=== PATIENT | male | born 1965 | race Caucasian/White ===

== ENCOUNTER → 2016-02-25 | Outpatient (CLI) | payer OTHER ==
[~2016-02-25] MED LIST: ACETAMINOPHEN/O1 TA1 PO; BENZTROPINE1 MG PO; BUSPAR15 MG PO; BUSPAR5 MG PO; CALCIUM 500 + D1 TAB PO; CLINDAMYCIN HC300 MG PO; CLONAZEPAM0.125 MG PO; CLONAZEPAM2 MG PO; COGENTIN0.5 MG PO; COGENTIN1 MG PO; DIAZEPAM10 M1 PO; FLEXERIL10 MG PO; HYDROCODONE BIT1 T11 PO; KLONOPIN0.5 MG PO; LAMICTAL100 MG PO; LAMICTAL25 MG PO; LODINE XL 500M500 MG PO; LODINE200 MG PO; MELOXICAM7.5 MG PO; MOTRIN800 MG PO; NAPROSYN500 MG PO; NAPROXEN500 M1 PO; NEURONTIN300 MG PO; NKHM; NORCO 10-325 T1 EACH PO; NORCO 325 MG-51 TAB PO; OXYBUTYNIN5 MG/5 M1 PO; PERCOCET 325 MG1 TA2 PO; PERCODAN 325 MG1 TAB PO; PREDNISONE10 MG PO; QUETIAPINE FUM100 M3 PO; SEROQUEL100 MG PO; SYNTHROID,LEVO50 MCG PO; TEGRETOL200 MG PO; ULTRAM50 MG PO; VALIUM10 MG PO; VICODIN 5/500 505 MG PO; VICODIN1 TAB PO; XANAX0.25 MG PO; XANAX0.5 MG PO; ZITHROMAX250 MG PO; ZYPREXA5 M1 PO; ZYPREXA5 MG PO
[2016-02-25 14:19] LABS: HEMATOCRIT 48.8 % (42.0-52.0); HEMOGLOBIN 16.1 g/dl (14.0-18.0); MEAN CELL VOLUME 98.4 fl (80.0-94.0); MEAN CORPUSCULAR HGB 32.5 pg (27.0-31.0); PLATELET COUNT AUTOMATED 257 10*3/uL (130-400); RED BLOOD COUNT 4.96 10*6/uL (4.50-5.90); RED CELL DISTRI WIDTH 12.6 % (0-14.5); WHITE BLOOD COUNT 4.9 10*3/uL (4.8-10.8)
[2016-02-25 14:55] LABS: ATYPICAL LYMPHS 13 % (0-0); BASOPHILS 1 % (0-1); EOSINOPHIL # 0.1 10*3/uL (0-0.4); EOSINOPHILS 2 % (1-4); LYMPHOCYTE # 1.7 10*3/uL (1.3-4.4); MONOCYTE # 0.9 10*3/uL (0.1-1.0); NEUTROPHIL # 2.2 10*3/uL (2.3-7.9); NEUTROPHILS 44 % (47-73); TOTAL CELLS COUNTED 100 #CELLS
[2016-02-25 14:56] LABS: PLATELET SUFFICIENCY NORMAL (NORMAL)
== END | disposition home or self-care (01) ==
LOC: LAB 13:15
PROVIDERS: Family Medicine
DX: R07.9 Chest pain, unspecified (principal); R05 Cough

== ENCOUNTER 2016-03-10 09:52 | Emergency (ER) | payer OTHER ==
[~2016-03-10] VITALS: Ht 172.7 cm; Wt 72.6 kg
[~2016-03-10 09:52] MED LIST changes: -SEROQUEL100 MG PO
[2016-03-10] MEDS ORDERED: SEROQUEL100 MG PO (10:01)
[2016-03-10] MEDS ORDERED: PERCOCET 325 MG1 TA2 PO (12:38)
== END 2016-03-10 12:47 | disposition home or self-care (01) ==
LOC: ED 09:52
DX: S00.83XA Contusion of other part of head, initial encounter (principal); F41.9 Anxiety disorder, unspecified; R68.84 Jaw pain; M25.562 Pain in left knee; G89.29 Other chronic pain; F17.200 Nicotine dependence, unspecified, uncomplicated; Z88.0 Allergy status to penicillin; Z79.899 Other long term (current) drug therapy; W10.9XXA Fall (on) (from) unspecified stairs and steps, initial encounter; Y93.9 Activity, unspecified; Y92.9 Unspecified place or not applicable; Y99.9 Unspecified external cause status

== ENCOUNTER 2016-05-23 07:54 | Emergency (ER) | payer OTHER ==
[~2016-05-23] VITALS: Ht 170.1 cm; Wt 72.6 kg
[~2016-05-23 07:54] MED LIST changes: +SEROQUEL100 MG PO
[2016-05-23] MEDS ORDERED: CLINDAMYCIN150 MG PO (08:09)
[2016-05-23] MEDS ORDERED: NAPROXEN500 MG PO (08:09)
== END 2016-05-23 08:17 | disposition home or self-care (01) ==
LOC: ED 07:54
DX: K08.89 Other specified disorders of teeth and supporting structures (principal); F41.9 Anxiety disorder, unspecified; F17.200 Nicotine dependence, unspecified, uncomplicated; Z88.0 Allergy status to penicillin

== ENCOUNTER 2016-11-29 08:06 | Emergency (ER) | payer OTHER ==
[~2016-11-29] VITALS: Ht 157.4 cm; Wt 71.7 kg
[~2016-11-29 08:06] MED LIST changes: +CLINDAMYCIN150 MG PO; +NAPROXEN500 MG PO
[2016-11-29] MEDS ORDERED: NORCO 5-325 TA1 EACH PO (13:14)
== END 2016-11-29 13:39 | disposition left against medical advice (07) ==
LOC: ED 08:06
DX: S92.001A Unspecified fracture of right calcaneus, initial encounter for closed fracture (principal); S92.002A Unspecified fracture of left calcaneus, initial encounter for closed fracture; F17.200 Nicotine dependence, unspecified, uncomplicated; G89.29 Other chronic pain; Z79.899 Other long term (current) drug therapy; Z88.0 Allergy status to penicillin; W17.89XA Other fall from one level to another, initial encounter; Y93.89 Activity, other specified; Y92.89 Other specified places as the place of occurrence of the external cause; Y99.9 Unspecified external cause status

== ENCOUNTER 2016-12-08 10:01 | Emergency (ER) | payer OTHER ==
[~2016-12-08] VITALS: Ht 172.7 cm; Wt 72.6 kg
[~2016-12-08 10:01] MED LIST changes: +NORCO 5-325 TA1 EACH PO
== END 2016-12-08 11:29 | disposition home or self-care (01) ==
LOC: ED 10:01
DX: S92.001D Unspecified fracture of right calcaneus, subsequent encounter for fracture with routine healing (principal); S92.002D Unspecified fracture of left calcaneus, subsequent encounter for fracture with routine healing; F17.200 Nicotine dependence, unspecified, uncomplicated; Z79.899 Other long term (current) drug therapy; Z88.6 Allergy status to analgesic agent; Z88.5 Allergy status to narcotic agent; Z88.0 Allergy status to penicillin; W17.89XD Other fall from one level to another, subsequent encounter

== ENCOUNTER 2017-06-06 06:04 | Emergency (ER) | payer OTHER ==
[~2017-06-06] VITALS: Ht 172.7 cm; Wt 72.6 kg
[2017-06-06 06:35] LABS: HEMATOCRIT 48.5 % (42.0-52.0); HEMOGLOBIN 16.3 g/dl (14.0-18.0); MEAN CELL VOLUME 92.2 fl (80.0-94.0); MEAN CORPUSCULAR HGB CONC 33.6 g/dl (33.0-37.0); MEAN PLATELET VOLUME 8.9 fl (9.6-12.3); PLATELET COUNT AUTOMATED 284 10*3/uL (130-400); RED BLOOD COUNT 5.26 10*6/uL (4.50-5.90); RED CELL DISTRI WIDTH 12.7 % (0-14.5); WHITE BLOOD COUNT 7.9 10*3/uL (4.8-10.8)
[2017-06-06] MEDS ORDERED: DOXYCYCLINE HY100 M3 PO (06:41)
[2017-06-06] MEDS ORDERED: FLAGYL500 MG PO (06:41)
[2017-06-06 06:56] LABS: BUN 6 mg/dl (7-24); CHLORIDE 102 mmol/L (98-107); CREATININE 0.74 mg/dL (0.70-1.30); POTASSIUM 4.2 mmol/L (3.5-5.1); SODIUM 136 mmol/L (136-145)
[2017-06-06] MEDS ORDERED: Motrin,Rufen800 MG PO (07:04)
[2017-06-06 07:07] LABS: ETHYL ALCOHOL < 3.0 mg/dl (<3)
[2017-06-06 07:09] LABS: TOTAL CELLS COUNTED 100 #CELLS
[2017-06-06 07:10] LABS: PLATELET SUFFICIENCY NORMAL (NORMAL)
== END 2017-06-06 06:58 | disposition left against medical advice (07) ==
LOC: ED 06:04
PROVIDERS: Emergency Medicine Emergency Medical Services
DX: S61.452A Open bite of left hand, initial encounter (principal); L08.9 Local infection of the skin and subcutaneous tissue, unspecified; S50.312A Abrasion of left elbow, initial encounter; F41.9 Anxiety disorder, unspecified; G89.29 Other chronic pain; Z88.0 Allergy status to penicillin; Z88.5 Allergy status to narcotic agent; W54.0XXA Bitten by dog, initial encounter; Y93.89 Activity, other specified; Y92.89 Other specified places as the place of occurrence of the external cause; Y99.8 Other external cause status